=== PATIENT | female | born 1990 | race Caucasian/White ===

== ENCOUNTER 2020-01-26 15:33 | Observation (INO) ==
[2020-01-26 15:39] VITALS: BP 141/86
[2020-01-26] MEDS ORDERED: 0.9 % Sodium Chloride 1,000 ML IVC ONE (16:20)
[2020-01-26] MEDS ORDERED: Ringers Solution, Lactated 1,000 ML IVC SCH (18:00)
[2020-01-26 19:27] LABS: Bacteria,Urine Few per hpf (None-Few); Bilirubin,Urine Negative (Negative); Blood,Urine Negative (Negative); Clarity,Urine Turbid (Clear); Color,Urine Yellow (Yellow); Glucose,Urine (UA) Normal (Normal); Ketones,Urine 60 mg/dL (Negative); Leukocyte Esterase,Urine Negative (Negative); Mucus,Urine Few per lpf (None-Few); Nitrite,Urine Negative (Negative); PH,Urine 6.5 pH Units (5.0-8.0); Protein,Urine 30 mg/dL (Neg-Trace); RBC,Urine 0-3 per hpf (0-3); Squamous Epithelial Cell,Urine Few per hpf (None-Few); Urobilinogen,Urine Normal (Normal)
[2020-01-26 20:10] LABS: Basophils % 0.2 %; Eosinophils % 0.1 %; Hematocrit 37.5 % (35.3-44.9); Hemoglobin 12.3 g/dL (11.5-15.4); Immature Granulocytes % 0.5 % (0-4); Lymphocytes # 1.2 K/mcL (0.6-4.6); Lymphocytes % 14.9 %; Mean Corpuscular HGB Conc 32.8 g/dL (31.6-35.5); Mean Corpuscular Hemoglobin 29.4 pg (28.0-33.3); Mean Corpuscular Volume 89.7 fL (83.0-100.0); Mean Platelet Volume 9.6 fL (9.4-12.4); Monocytes # 0.5 K/mcL (0.0-1.3); Monocytes % 6.1 %; Neutrophils # 6.5 K/mcL (1.6-8.9); Platelet Count 282 K/mcL (140-400); Red Blood Count 4.18 M/mcL (3.82-4.97); Segmented Neutrophils % 78.2 %; White Blood Count 8.3 K/mcL (4.3-11.1)
[2020-01-26 20:30] LABS: Alanine Aminotransferase 27 Units/L (7-52); Aspartate Amino Transferase 23 Units/L (13-39); BUN/Creatinine Ratio 13 (6-26); Blood Urea Nitrogen 7 mg/dL (6-20); Lactate Dehydrogenase 163 Units/L (140-271); Uric Acid 5.4 mg/dL (2.3-7.6); eGFR For African Americans > 60 (> 60); eGFR For Non-African Americans > 60 (> 60)
[2020-01-26] MEDS ORDERED: Dexamethasone 4 MG/ML VIAL IVP ONE (22:21)
[2020-01-26] MEDS ORDERED: Benzonatate 100 MG CAPSULE PO PRN (22:22)
[2020-01-26] MEDS ORDERED: Ondansetron 4 MG/2 ML VIAL IVP ONE (23:44)
== END 2020-01-27 00:45 | disposition short-term general hospital (02) ==
LOC: 1NENULAB 15:33 → EMEROOARM 15:33 → 1NENULAB 22:01
PROVIDERS: ADMIT Obstetrics & Gynecology; ATTEND Obstetrics & Gynecology

== ENCOUNTER 2020-02-06 04:35 | Inpatient (IN) ==
[~2020-02-06 04:35] MED LIST: Azithromycin 500 MG in 0.9 % Sodium Chloride 250 ML IVPB ONE; Famotidine 20 MG/2 ML VIAL IVP PRN; Metoclopramide 10 MG/2 ML VIAL IVP PRN; Naloxone 0.4 MG/ML INJ IVP PRN; Ondansetron 4 MG/2 ML VIAL IVP PRN
[2020-02-06] MEDS ORDERED: Ringers Solution, Lactated 1,000 ML ONE (04:43)
[2020-02-06 05:06] LABS: Amphetamine Screen,Urine Negative ng/mL (Cutoff=1000); Barbiturate Screen,Urine Negative ng/mL (Cutoff=200); Benzodiazepines Screen,Urine Negative ng/mL (Cutoff=200); Cannabinoid Screen,Urine Negative ng/mL (Cutoff = 50); Cocaine Screen,Urine Negative ng/mL (Cutoff= 300); Creatinine,Urine 21 mg/dL; Opiate Screen,Urine Negative ng/mL (Cutoff=300); Phencyclidine Screen,Urine Negative ng/mL (Cutoff=25); Protein/Creatinine Ratio,Urine 7.33 mg/mg (0.00-0.20)
[2020-02-06 05:20] LABS: Basophils % 0.2 %; Eosinophils % 0.3 %; Hematocrit 36.6 % (35.3-44.9); Immature Granulocytes % 0.6 % (0-4); Lymphocytes # 2.7 K/mcL (0.6-4.6); Lymphocytes % 22.4 %; Mean Corpuscular HGB Conc 32.8 g/dL (31.6-35.5); Mean Corpuscular Volume 88.4 fL (83.0-100.0); Mean Platelet Volume 10.1 fL (9.4-12.4); Monocytes # 1.1 K/mcL (0.0-1.3); Monocytes % 8.8 %; Neutrophils # 8.1 K/mcL (1.6-8.9); Platelet Count 477 K/mcL (140-400); Red Blood Count 4.14 M/mcL (3.82-4.97); Red Cell Distribution Width 12.6 % (11.5-14.5); Segmented Neutrophils % 67.7 %
[2020-02-06] MEDS ORDERED: Calcium Gluconate 1,000 MG/10 ML VIAL IVP PRN ×2 (05:34→08:35)
[2020-02-06] MEDS: Ringers Solution, Lactated 1,000 ML IVC SCH ×2 (05:37→16:10)
[2020-02-06] MEDS ORDERED: *HR* FentaNYL (PF) 100 MCG/2 ML VIAL ONE (05:37)
[2020-02-06] MEDS ORDERED: *HR* Morphine Sulfate/PF 10 MG/10 ML AMPUL ONE (05:37)
[2020-02-06] MEDS ORDERED: *HR* Oxytocin 10 UNIT/ML VIAL IM ONE (05:40)
[2020-02-06] MEDS ORDERED: Magnesium Sulf 20 gm/SW 500mL 20 GM/500 ML IV.SOLN IVC SCH (05:45)
[2020-02-06] MEDS ORDERED: CeFAZolin 2 GM/120 ML BAG IVPB SCH (06:00)
[2020-02-06] MEDS ORDERED: Ondansetron 4 MG/2 ML VIAL ONE (06:17)
[2020-02-06] MEDS ORDERED: Acetaminophen IV 1,000 MG/100 ML INFUS..BTL ONE (06:32)
[2020-02-06] MEDS ORDERED: Promethazine 6.25 MG in Water for inj. (sterile) 20 ML IVPB PRN (06:34)
[2020-02-06] MEDS ORDERED: Naloxone 0.4 MG/ML INJ IVP PRN (06:34)
[2020-02-06] MEDS ORDERED: *HR* FentaNYL (PF) 100 MCG/2 ML VIAL IVP PRN (06:34)
[2020-02-06] MEDS ORDERED: Ondansetron 4 MG/2 ML VIAL IVP PRN ×2 (06:34→08:35)
[2020-02-06] MEDS ORDERED: Dexamethasone 4 MG/ML VIAL ONE (06:57)
[2020-02-06] MEDS ORDERED: Oxytocin 20 units/ LR 1000 mL 20 UNIT/1,000 ML BAG IVC SCH (08:35)
[2020-02-06] MEDS ORDERED: Sennosides 8.6 MG TABLET PO PRN (08:35)
[2020-02-06] MEDS ORDERED: *HR* OxyCODONE Immed Rel 5 MG TABLET PO PRN (08:35)
[2020-02-06] MEDS ORDERED: Metoclopramide 10 MG/2 ML VIAL IVP PRN (08:35)
[2020-02-06 12:37] LABS: Magnesium 4.2 mg/dL (1.6-2.6); eGFR For African Americans > 60 (> 60); eGFR For Non-African Americans > 60 (> 60)
[2020-02-06] MEDS: Magnesium Sulf 20 gm/SW 500mL 20 GM/500 ML IV.SOLN IVC SCH (16:12)
[2020-02-06] MEDS: Prenatal Vit/FA 1 EACH TABLET PO SCH (16:13)
[2020-02-06] MEDS: Simethicone 80 MG TAB.CHEW PO PRN (20:26)
[2020-02-06] MEDS: Ibuprofen 600 MG TABLET PO PRN (20:26)
[2020-02-06] MEDS: *HR* Enoxaparin 40 MG/0.4 ML SYRINGE SQ SCH (21:35)
[2020-02-07] MEDS: Ibuprofen 600 MG TABLET PO PRN ×4 (02:32→23:05)
[2020-02-07] MEDS: Magnesium Sulf 20 gm/SW 500mL 20 GM/500 ML IV.SOLN IVC SCH (02:33)
[2020-02-07] MEDS: Prenatal Vit/FA 1 EACH TABLET PO SCH (08:02)
[2020-02-07] MEDS: *HR* Enoxaparin 40 MG/0.4 ML SYRINGE SQ SCH (11:58)
[2020-02-07] MEDS: *HR* OxyCODONE/APAP 5/325 TABLET PO PRN ×2 (13:31→23:02)
[2020-02-07] MEDS: Simethicone 80 MG TAB.CHEW PO PRN (23:38)
[2020-02-08] MEDS: Ibuprofen 600 MG TABLET PO PRN ×3 (05:10→19:50)
[2020-02-08] MEDS: *HR* OxyCODONE/APAP 5/325 TABLET PO PRN ×4 (05:10→22:30)
[2020-02-08] MEDS ORDERED: MOM Conc 10 ML UD.LIQ PO PRN (08:31)
[2020-02-08] MEDS: Prenatal Vit/FA 1 EACH TABLET PO SCH (10:07)
[2020-02-08] MEDS: *HR* Enoxaparin 40 MG/0.4 ML SYRINGE SQ SCH (10:07)
[2020-02-08] MEDS: Simethicone 80 MG TAB.CHEW PO PRN (19:49)
[2020-02-08] MEDS: Acetaminophen 325 MG TABLET PO PRN (22:30)
[2020-02-09] MEDS: Ibuprofen 600 MG TABLET PO PRN ×4 (01:30→22:48)
[2020-02-09] MEDS: *HR* OxyCODONE/APAP 5/325 TABLET PO PRN ×3 (04:56→21:45)
[2020-02-09] MEDS: Acetaminophen 325 MG TABLET PO PRN ×2 (04:57→14:05)
[2020-02-09] MEDS: Simethicone 80 MG TAB.CHEW PO PRN (08:34)
[2020-02-09] MEDS: *HR* Enoxaparin 40 MG/0.4 ML SYRINGE SQ SCH (08:34)
[2020-02-09] MEDS: Prenatal Vit/FA 1 EACH TABLET PO SCH (08:34)
[2020-02-10] MEDS: *HR* OxyCODONE/APAP 5/325 TABLET PO PRN ×2 (02:25→10:54)
[2020-02-10] MEDS: Simethicone 80 MG TAB.CHEW PO PRN (08:18)
[2020-02-10] MEDS: Prenatal Vit/FA 1 EACH TABLET PO SCH (08:18)
[2020-02-10] MEDS: Ibuprofen 600 MG TABLET PO PRN (08:18)
[2020-02-10 08:32] VITALS: BP 135/95
[2020-02-10] MEDS: *HR* Enoxaparin 40 MG/0.4 ML SYRINGE SQ SCH (10:54)
== END 2020-02-10 11:10 | disposition home or self-care (01) | DRG 787 ==
LOC: 1NENULAB → 1NENUOBS 10:26
PROVIDERS: ADMIT Obstetrics & Gynecology; ATTEND Obstetrics & Gynecology